=== PATIENT | female | born 1990 | race Caucasian/White ===

== ENCOUNTER 2017-03-27 05:36 | Inpatient (IN) | payer BC ==
[2017-03-27] MEDS ORDERED: Ondansetron HCl/PF 4 MG/2 ML Vial IVP PRN ×3 (05:45→08:13)
[2017-03-27] MEDS ORDERED: Promethazine HCl 25 MG/ML VIAL IM PRN ×2 (05:45→08:13)
[2017-03-27] MEDS ORDERED: Lactated Ringer's 1,000 ML IV SCH ×2 (05:45→18:30)
[2017-03-27] MEDS ORDERED: CEFAZOLIN/Water 2 GM/20 ML SYRINGE SLOW IVP SCH (05:45)
[2017-03-27] MEDS ORDERED: Bicitra 30 ML UDCUP PO SCH (05:45)
[2017-03-27 06:11] VITALS: BMI 29.5
[2017-03-27 06:24] LABS: Hemoglobin 13.5 g/dL (12.0-16.0); Mean Corpuscular HGB CONC 33.9 g/dL (32.0-36.0); Mean Corpuscular Volume 88.4 fl (81.0-99.0); Mean Platelet Volume 6.7 fL (7.4-10.4); Platelet Count 220 thou/uL (130-400); RBC Distribution Width 11.4 % (11.5-14.5); Red Blood Cell (RBC) Count 4.48 mill/uL (4.20-5.40)
[2017-03-27] MEDS ORDERED: Fentanyl 100 MCG/2 ML VIAL ONE (06:57)
[2017-03-27] MEDS ORDERED: Morphine PF 1 MG/ML SYR ONE (06:57)
[2017-03-27] MEDS ORDERED: Oxytocin 10 UNITS/ML VIAL ONE (06:58)
[2017-03-27] MEDS ORDERED: Ketorolac Tromethamine 30 MG/ML VIAL ONE ×2 (06:58→11:12)
[2017-03-27] MEDS ORDERED: ePHEDrine/0.9% NaCl/PF SYRINGE 50 mg/10 ml ONE ×2 (06:58→11:12)
[2017-03-27] MEDS ORDERED: Ondansetron HCl/PF 4 MG/2 ML Vial ONE ×2 (06:58→11:12)
[2017-03-27 07:02] LABS: HBSAg Index 0.51 S/CO (0-0.99); Hep B Surf Ag Non-Reactive S/CO (NonReactive); Syphilis Antibody Nonreactive (Nonreactive); Syphilis Antibody Index 0.05 S/CO (<1.00 Non-Reactive)
--- NOTE | 2017-03-27 07:25 | PDOC.LDHP ---
Labor and Delivery H&P Chief complaint: scheduled section HPI: 27yo at 39+wk for PCS due to john breech presentation. No complaints. Sono shows persistent breech today. Current gestational age (weeks): 39 Due date: 03/29/17 Dating criteria: last menstrual period Grav: 1 Para: 0 Current complications: none Abnormal US findings: No Past Medical History: denies Current medications: pre-henrik vitamins Previous surgical history: other (tooth extraction) Allergies/Adverse Reactions: Allergies Allergy/AdvReac Type Severity Reaction Status Date / Time No Known Allergies Allergy Verified 03/27/17 06:11 Social history: none - Physical Exam Vital signs reviewed and normal: yes General: NAD Heart: RRR Lungs: CTAB Abdomen: gravid Extremeties: no edema FHT: category 1 Burgin contractions every: q5-7min - OB Labs Blood type: B RH: positive Antibody Screen: negative HIV: negative RPR: negative HEPSAg: negative 1 hour GCT: negative GBS: negative Rubella: immune - Assessment L&D Assessment: scheduled primary section - Plan Plan: admit to L&D, to OR for section, informed consent obtained, anesthesia consult for pain management
[2017-03-27] MEDS ORDERED: Eucerin (Mineral Oil/Petrolatum,White) 30 gm Jar TOP PRN (08:13)
[2017-03-27] MEDS ORDERED: HYDROmorphone 2 MG/ML VIAL SLOW IVP PRN (08:13)
[2017-03-27] MEDS ORDERED: Naloxone HCl 0.4 mg/ml Vial IV PRN (08:13)
[2017-03-27] MEDS ORDERED: Naloxone HCl 0.4 mg/ml Vial IVP PRN ×2 (08:13)
[2017-03-27] MEDS ORDERED: Meperidine HCl/PF 25 MG/ML VIAL SLOW IVP PRN (08:13)
[2017-03-27] MEDS ORDERED: Promethazine HCl 25 MG SUPP PR PRN (08:13)
[2017-03-27] MEDS ORDERED: diphenhydrAMINE 50 MG/ML VIAL IVP PRN (08:13)
[2017-03-27] MEDS ORDERED: Ketorolac Tromethamine 30 MG/ML VIAL IVP SCH (08:15)
[2017-03-27] MEDS ORDERED: Communication Order-Pharmacy FS SCH (08:15)
--- NOTE | 2017-03-27 08:18 | PDOC.OPDEL ---
OB Operative/Delivery Note Delivery Dr/Surgeon: Ignacio Assist: Tavares Pre-Delivery Diagnosis: breech, scheduled section Procedure/Post Delivery Dx: primary low transverse CS Weeks gestation: 39 Anesthesia: spinal - Findings A Sex: female - 1 min: 8 - 5 min: 9 - Additional Findings/Plan Placenta delivered: spontaneous findings: low transverse hysterotomy without extension, normal uterus, normal tubes, normal ovaries Estimated blood loss: 700 Post delivery plan: routine recovery
--- NOTE | 2017-03-27 09:38 | OP ---
DATE OF OPERATION: 03/27/2017 PREOPERATIVE DIAGNOSES: 1. Intrauterine at 39 weeks and 4 days. 2. Persistent breech presentation. POSTOPERATIVE DIAGNOSES: 1. Intrauterine at 39 weeks and 4 days. 2. Persistent breech presentation. PROCEDURE: Primary low transverse section via Pfannenstiel skin incision. ANESTHESIA: Spinal by Dr. Rangel. ATTENDING SURGEON: Liss Pierre M.D. CHEMIST PHARMACEUTICAL: Marlon Chapin M.D. ESTIMATED BLOOD LOSS: 700 mL. COMPLICATIONS: None. PATHOLOGY: None. DRAINS: Taylor catheter. FINDINGS: Female infant in john breech presentation. Apgars and weight are currently pending. Hys terotomy without extension. Normal uterus, ovaries and tubes bilaterally. OPERATIVE TECHNIQUE: The patient was taken to the operating room where spinal anesthesia was obtaine d without difficulty. The patient was prepped and draped in a sterile fashion in the dorsal supine p osition with a leftward tilt. After ensuring adequacy of anesthesia and performing a timeout, a Pfan nenstiel skin incision was made with a knife and carried down to the underlying subcutaneous tissue w ith the Bovie. The fascia was nicked in the midline with the Bovie and carried laterally with the Ma kris scissors. The superior aspect of the fascia was tented with 2 Kochers and dissected off the rectu s with the Perez scissors. The inferior aspect of the fascia was tented with 2 Kochers and dissected off the rectus down to the pubic symphysis with the Mayos. The rectus were bluntly divided in midlin e. The peritoneum was bluntly entered into and manually retracted. The Octavio O retractor was place d into the abdomen and secured. The lower uterine segment was incised in transverse fashion and exte nded with the Ko maneuver. The breech was brought to the hysterotomy and delivered with fundal pre ssure and standard breech maneuvers. The head was delivered with flexion of the head with a Mauricea n-Iewawoa-Kege maneuver and delayed cord clamping was performed. The was vigorous and the cor d was then clamped, infant handed to awaiting nursing and cord blood was collected. The placenta was allowed to spontaneously deliver. The uterus was exteriorized, cleared of all clots and debris and placed back into the abdomen. The hysterotomy was repaired with a #1 Monocryl in a running locking f ashion with excellent hemostasis noted. Copious irrigation of the pelvis was performed, again noting hemostasis. The Octavio O retractor was removed. The rectus were hemostatic and the fascia was reap proximated with an 0 PDS x2 sutures with excellent reapproximation. The subcutaneous tissue was irri gated and cauterized of any bleeders and reapproximated with a 2-0 plain gut in a running fashion. T he skin was closed with 4-0 Monocryl in a subcuticular fashion. Dermabond was applied. The patient tolerated procedure well. Sponge, lap, and needle counts were correct x2. The patient was taken to recovery room in stable condition. Patient received Ancef 2 grams prior to the procedure.
[2017-03-27] MEDS ORDERED: LR / Pitocin 40 units/1000 ml 1,000 ML ONE (10:04)
[2017-03-27] MEDS ORDERED: Simethicone Chewable 80 MG TAB PO PRN (10:54)
[2017-03-27] MEDS ORDERED: Acetaminophen 325 MG TAB PO PRN (10:54)
[2017-03-27] MEDS ORDERED: Lanolin Ointment 7 GM TUBE TOP PRN (10:54)
[2017-03-27] MEDS ORDERED: diphenhydrAMINE 25 MG CAP PO PRN (10:54)
[2017-03-27] MEDS ORDERED: Bisacodyl 10 MG SUPP PR PRN (10:54)
[2017-03-27] MEDS ORDERED: LR / Pitocin 40 units/1000 ml 1,000 ML IV SCH (11:30)
[2017-03-27] MEDS: Ferrous Sulfate 325 MG TAB PO SCH ×2 (12:12→21:03)
[2017-03-27] MEDS: Docusate Calcium (SURFAK) 240 MG CAP PO SCH ×2 (12:12→21:03)
[2017-03-27] MEDS: Prenatal Vitamin 1 TAB PO SCH (12:12)
[2017-03-27] MEDS: Ketorolac Tromethamine 30 MG/ML VIAL IVP PRN (19:48)
[2017-03-27] MEDS ORDERED: HYDROcodone/Acetaminophen 5/325 mg Tablet PO PRN (20:15)
[2017-03-28] MEDS: Ketorolac Tromethamine 30 MG/ML VIAL IVP PRN (02:51)
[2017-03-28 06:57] LABS: Hemoglobin 13.2 g/dL (12.0-16.0); Mean Corpuscular HGB CONC 35.6 g/dL (32.0-36.0); Mean Corpuscular Hemoglobin 32.3 pg (27.0-31.0); Mean Corpuscular Volume 90.8 fl (81.0-99.0); Mean Platelet Volume 6.7 fL (7.4-10.4); Platelet Count 187 thou/uL (130-400); RBC Distribution Width 11.4 % (11.5-14.5); Red Blood Cell (RBC) Count 4.07 mill/uL (4.20-5.40); White Blood Cell (WBC) Count 11.5 thou/uL (4.8-10.8)
[2017-03-28] MEDS: Prenatal Vitamin 1 TAB PO SCH (09:15)
[2017-03-28] MEDS: Docusate Calcium (SURFAK) 240 MG CAP PO SCH ×2 (09:15→21:09)
[2017-03-28] MEDS: Ferrous Sulfate 325 MG TAB PO SCH (10:02)
[2017-03-28] MEDS: Ibuprofen 800 MG TAB PO SCH ×2 (13:05→21:09)
[2017-03-28] MEDS: HYDROcodone/Acetaminophen 5/325 mg Tablet PO PRN ×3 (14:41→23:02)
--- NOTE | 2017-03-28 21:40 | PDOC.PP ---
Post Progress Note Post Day #: 1 PO intake tolerated: yes Flatus: no Ambulation: yes Vital Signs (12 hours) Temp Pulse Resp BP BP 03/28/17 17:05 99.0 F 78 18 115/58 L 03/28/17 11:25 98.2 F 88 18 114/57 L Weight Weight 167 lb - Physical Examination General: NAD Cardiovascular: RRR Respiratory: non-labored breathing Abdominal: no distention, appropriately TTP Fundus firm & at: umb Skin: CS incision dry & intact Neurological: no gross focal deficits Psychiatric: normal affect Result Diagrams: 03/28/17 06:39 Additional Labs: Post Labs Blood Type B POSITIVE 03/27/17 06:15 Hep Bs Antigen Non-Reactive S/CO (NonReactive) 03/27/17 06:15 (1) Term delivered Code(s): O80 - ENCOUNTER FOR FULL-TERM UNCOMPLICATED DELIVERY Status: Acute - Assessment/Plan VSSAF Doing well postop CS day 1. Hgb appropriate postop. Cont routine advances and pain meds Rh pos RImm . Cont current care.
[2017-03-29] MEDS: Ferrous Sulfate 325 MG TAB PO SCH ×3 (05:26→23:54)
[2017-03-29] MEDS: Ibuprofen 800 MG TAB PO SCH ×3 (06:30→21:23)
--- NOTE | 2017-03-29 07:57 | PDOC.PP ---
Post Progress Note Post Day #: 2 Subjective: Doing well, no complaints. Pain controlled. PO intake tolerated: yes Flatus: yes Ambulation: yes Vital Signs (12 hours) Temp Pulse Resp BP BP 03/29/17 00:00 98.2 F 68 18 118/72 03/28/17 20:00 98.7 F 89 18 108/55 L Weight Weight 167 lb - Physical Examination General: NAD Respiratory: non-labored breathing Abdominal: lochia, no distention, appropriately TTP Fundus firm & at: U-3 Skin: CS incision dry & intact, no rash Neurological: no gross focal deficits Psychiatric: A&Ox3 Result Diagrams: 03/28/17 06:39 Additional Labs: Post Labs Blood Type B POSITIVE 03/27/17 06:15 Hep Bs Antigen Non-Reactive S/CO (NonReactive) 03/27/17 06:15 (1) delivery, delivered, current hospitalization Code(s): O82 - ENCOUNTER FOR DELIVERY WITHOUT INDICATION Status: Acute (2) Term delivered Code(s): O80 - ENCOUNTER FOR FULL-TERM UNCOMPLICATED DELIVERY Status: Acute - Assessment/Plan Continue routine postop care. Anticipate d/c tomorrow.
[2017-03-29] MEDS: Prenatal Vitamin 1 TAB PO SCH (09:58)
[2017-03-29] MEDS: Docusate Calcium (SURFAK) 240 MG CAP PO SCH ×2 (09:58→21:23)
[2017-03-29] MEDS: HYDROcodone/Acetaminophen 5/325 mg Tablet PO PRN (10:00)
[2017-03-30] MEDS: Ibuprofen 800 MG TAB PO SCH (06:13)
[2017-03-30] MEDS: Prenatal Vitamin 1 TAB PO SCH (08:46)
[2017-03-30] MEDS: Docusate Calcium (SURFAK) 240 MG CAP PO SCH (08:46)
[2017-03-30] MEDS: Ferrous Sulfate 325 MG TAB PO SCH (08:49)
[2017-03-30 08:53] VITALS: BP 117/69; TEMP 98.2
== END 2017-03-30 11:15 | disposition home or self-care (01) | DRG 766 ==
LOC: L&D 05:36 → 3SW 10:55
PROVIDERS: ADMIT Student in an Organized Health Care Education/Training Program; ATTEND Student in an Organized Health Care Education/Training Program
PROC: 10D00Z1 Extraction of Products of Conception, Low, Open Approach (ICD-10-PCS; principal; 2017-03-27)
DX: O32.1XX0 Maternal care for breech presentation, not applicable or unspecified (principal); Z37.0 Single live birth; Z3A.39 39 weeks gestation of pregnancy
CPT/HCPCS: 36415; 51702; 76815; 85027; 86780; 86850; 86900; 86901; 87340; J1885; J2274; J2405; J2590; J3010

== ENCOUNTER 2021-02-09 08:43 | Outpatient (CLI) | payer BC ==
[2021-02-13 12:41] LABS: ANA Symphony (Qualitative) Negative (Negative); ANA Symphony (Quantitative) 0.3 Ratio (< 0.7 Negative); CCP IgG Antibody 2.5 EliAU/mL (<7 Negative); EliA RAS New Method **** NEW METHOD ****; EliA Thy New Method **** NEW METHOD ****; EliA Vaculitis New Method **** NEW METHOD ****; Mitochondrial Ab 0.7 U/mL (<4 Negative); Thyroid Peroxidase IgG Ab Less than 4.0 IU/mL (<25 Normal); dsDNA IgG Antibody 0.6 IU/mL (<10 Negative)
== END 2021-02-09 08:44 | disposition home or self-care (01) ==
LOC: SCSRAD 08:43
PROVIDERS: ATTEND Family Medicine
DX: M79.672 Pain in left foot (principal)
CPT/HCPCS: 36415; 83516; 85652; 86038; 86140; 86160; 86200; 86225; 86376